=== PATIENT | female | born 1955 | race Caucasian/White ===

== ENCOUNTER → 2016-04-06 | Outpatient (CLI) | payer OTHER ==
--- NOTE | 2016-04-06 14:22 | XR ---
EXAMINATION TYPE: XR wrist complete RT DATE OF EXAM: 04/06/2016 2:05 PM COMPARISON: NONE HISTORY: Contusion TECHNIQUE: 4 view right wrist FINDINGS: No acute fractures are evident. Joint spaces are preserved. Some dorsal soft tissue swellin g may be present. There is pain at the anatomic snuff box, nuclear medicine bone scan can be performed 7-10 days from a cute trauma for continued pain. Follow-up exams can be performed. IMPRESSION: 1. Normal right wrist
--- NOTE | 2016-04-06 14:23 | XR ---
EXAMINATION TYPE: XR pelvis AP view DATE OF EXAM: 04/06/2016 2:05 PM COMPARISON: NONE HISTORY: Lumbar pain, fall TECHNIQUE: Single AP pelvis FINDINGS: Femoral heads articulate with the acetabulum. Symphysis pubis normal. Sacroiliac joints dao ear without acute changes. No acute fractures are evident. Normal bowel gas is present. IMPRESSION: 1. Normal AP pelvis
--- NOTE | 2016-04-06 14:24 | XR ---
EXAMINATION TYPE: XR lumbar spine 2 or 3V DATE OF EXAM: 04/06/2016 2:05 PM COMPARISON: NONE HISTORY: Fall, pain TECHNIQUE: 3 view lumbar spine FINDINGS: There 5 lumbar-type vertebral bodies. The pedicles are intact. Tubal body heights are prese rved. Disc heights appear preserved. Alignment is unremarkable. IMPRESSION: 1. Normal lumbar spine
== END | disposition home or self-care (01) ==
LOC: RADXRMAIN 13:40
PROVIDERS: ATTEND Emergency Medicine
DX: S33.5XXA Sprain of ligaments of lumbar spine, initial encounter (principal); S60.211A Contusion of right wrist, initial encounter; S40.011A Contusion of right shoulder, initial encounter
CPT/HCPCS: 72100; 72170

== ENCOUNTER → 2016-05-19 | Outpatient (CLI) | payer OTHER ==
--- NOTE | 2016-05-20 04:19 | MR ---
EXAMINATION TYPE: MR lumbar spine wo con DATE OF EXAM: 05/19/2016 4:06 PM COMPARISON: NONE HISTORY: 60-year-old female with lumbar Strain TECHNIQUE: Multiplanar, multisequence images of the lumbar spine were acquired. FINDINGS: Vertebral body heights are preserved and alignment is maintained. No suspicious bone marrow replacement. Conus medullaris is normal. Variable mild multilevel disc desiccation, [id number] at L5-S1. Bulging discs at L4-L5 and L5-S 1. Corresponding ligamentum flavum thickening and facet arthropathy in the mid to lower lumbar spine. There is a incidental perineural cyst left T11-T12 neuroforamen. At T12-L1, there is a right-sided perineural cyst. No spinal canal or neuroforaminal stenosis. At L1-L2, no spinal canal or neuroforaminal stenosis. At L2-L3, no spinal canal or neuroforaminal stenosis. At L3-L4, there is facet arthropathy without significant spinal canal or neuroforaminal stenosis. At L4-L5, there is hypertrophic facet arthropathy and ligamentum flavum thickening, and bulging disc. Disc material minimally encroaches into the bilateral inferior neuroforamina. No spinal canal stenos is. At L5-S1, there is broad-based disc bulge eccentric toward the left with an intraforaminal protrusion . Additional ligamentum flavum thickening and facet arthropathy. There is a tiny left paracentral liv ular fissure also noted. Changes result in moderate left neuroforaminal stenosis. Disc material also closely approaches and may abut the traversing left S1 nerve root. No spinal canal stenosis. No prevertebral or paravertebral soft tissue abnormality IMPRESSION: 1. Mild multilevel degenerative disc disease, mild to moderate in the lower lumbar spine. Correspondi ng ligamentum flavum thickening and facet arthropathy in the mid to lower lumbar spine. 2. No vertebral compression collapse or malalignment. 3. At L5-S1, there is disc bulge eccentric towards the left with an intraforaminal protrusion causing moderate left neuroforaminal stenosis. Disc material also shows a tiny annular fissure and closely a pproaches the traversing left S1 nerve root.
== END | disposition home or self-care (01) ==
LOC: RADMRIMAIN 14:51
PROVIDERS: ATTEND Emergency Medicine
DX: M99.73 Connective tissue and disc stenosis of intervertebral foramina of lumbar region (principal); M51.26 Other intervertebral disc displacement, lumbar region; M51.36 Other intervertebral disc degeneration, lumbar region; S40.011A Contusion of right shoulder, initial encounter; S60.211A Contusion of right wrist, initial encounter
CPT/HCPCS: 72148